=== PATIENT | female | born 1955 | race Two or more races ===

== ENCOUNTER 2023-04-11 08:56 | Inpatient (IN) | payer OTHER ==
[~2023-04-11] VITALS: Ht 157.5 cm; Wt 82.1 kg
[2023-04-11] MEDS ORDERED: CHILDREN'S ASPI81 MG PO (10:52)
[2023-04-11] MEDS ORDERED: SYNTHROID137 MCG PO (10:53)
[2023-04-11] MEDS ORDERED: COZAAR50 MG PO (10:53)
[2023-04-11] MEDS ORDERED: LIPITOR20 MG PO (10:53)
[2023-04-11] MEDS ORDERED: LOREEV XR2 MG PO (10:54)
[2023-04-11] MEDS ORDERED: CYMBALTA60 MG PO (10:54)
[2023-04-11] MEDS ORDERED: MIRAPEX0.25 MG PO (10:55)
== END 2023-04-18 17:39 | DRG 470 ==
LOC: O/R 04-16 05:51 → SURG 04-16 10:15 → EDBD 04-16 10:15 → OB/GYN 04-16 11:41 → SURG 04-16 13:00
PROVIDERS: ADMIT Orthopaedic Surgery; ATTEND Orthopaedic Surgery
PROC: 0SRD0JZ Replacement of Left Knee Joint with Synthetic Substitute, Open Approach (ICD-10-PCS; principal; 2023-04-16 13:00)
DX: M17.12 Unilateral primary osteoarthritis, left knee (principal); M85.662 Other cyst of bone, left lower leg